=== PATIENT | female | born 1945 | race Caucasian/White ===

== ENCOUNTER 2024-09-25 20:51 | Emergency (ER) | payer MEDICARE ==
[2024-09-25] VITALS (10 sets, daily range): BP systolic 140–172; BP diastolic 90–109
[~2024-09-25] VITALS: Ht 170.2 cm; Wt 62.6 kg
[2024-09-25] MEDS ORDERED: LABETALOL HCL 20 MG/ 4 ML CARTRG IV ONE (21:20)
[2024-09-25] MEDS ORDERED: KETOROLAC TROMETHAMINE 30 MG/ML SDV IV ONE (21:20)
[2024-09-25] MEDS ORDERED: ASPIRIN 81 MG/TAB PO ONE (21:20)
[2024-09-25] MEDS ORDERED: ACETAMINOPHEN 500 MG TAB PO ONE (21:20)
[2024-09-25 21:32] LABS: BASO% 0.8 % (0-3); EOS% 1.8 % (0-8); HEMATOCRIT 39.1 % (37.0-47.0); HEMOGLOBIN 12.7 g/dl (12.0-16.0); IMMATURE GRANULOCYTES 0.2 % (0.0-5.0); MEAN CELL VOLUME 89.5 fL CALC (80.0-100.0); MEAN CORPUSCULAR HGB 29.1 pG CALC (26.0-32.0); MEAN CORPUSCULAR HGB CONC 32.5 g/dL CAL (32.0-36.0); MONO% 7.9 % (2-13); NEUT# 4.01 thou/uL (2.00-7.15); NEUT% 66.3 % (42-76); RED BLOOD COUNT 4.37 mill/uL (4.20-5.60); RED CELL DISTRI WIDTH 14.1 % (11.5-15.5)
[2024-09-25 21:49] LABS: ALBUMIN 4.4 g/dL (3.2-5.0); ALKALINE PHOSPHATASE 106 u/l (38-126); ANION GAP 12 (6-22 (CALC)); BILIRUBIN, TOTAL 0.7 mg/dL (0.02-1.3); BUN 27 mg/dL (8-23); BUN/CREATININE RATIO 30 (12-20 (CALC)); CARBON DIOXIDE 26 mmol/l (22-30); CHLORIDE 106 mmol/l (95-108); CREATININE 0.9 mg/dL (0.5-1.0); ESTIMATED GFR 65 ML/MIN (>=90 (CALC)); POTASSIUM 3.9 mmol/l (3.5-5.1); SGOT/AST 51 u/l (9-36); SODIUM 141 mmol/l (137-146); TOTAL PROTEIN 7.3 g/dL (6.3-8.2)
[2024-09-26 00:20] VITALS: BP 143/92
== END 2024-09-26 00:20 | disposition home or self-care (01) ==
LOC: ED 20:51
PROVIDERS: Family Medicine
DX: R07.89 Other chest pain (principal); I48.91 Unspecified atrial fibrillation; I10 Essential (primary) hypertension; Z79.01 Long term (current) use of anticoagulants